=== PATIENT | female | born 1985 | race American Indian/Alaskan Native ===

== ENCOUNTER 2016-12-12 21:22 | Emergency (ER) | payer SELFPAY ==
[2016-12-12 22:00] VITALS: BP 126/81
[2016-12-12] MEDS ORDERED: XYLOCAINE 1% 20 mL INFILTRATI ONE (22:54)
[2016-12-12] MEDS ORDERED: BOOSTRIX IM ONE (22:54)
--- NOTE | 2016-12-12 23:29 | Emergency Department Report ---
ED Laceration HPI - HPI Chief Complaint: Wound/Laceration Stated Complaint: LACERATION LEFT INDEX FINGER Time Seen by Provider: 12/12/16 22:47 Occurred When: Today Location: Upper Extremity Severity: moderate Tetanus Status: Not up to Date Laceration Symptoms: Yes Pain, No Foreign Body Sensation, No Numbness, No Weakness Other History: Patient comes in the ER today with complaints of finger laceration to her left second finger. Patient states that she cut her finger while opening a can of corn. Patient unsure of her last tetanus but thinks it was 5 years ago. ED Review of Systems ROS: Stated complaint: LACERATION LEFT INDEX FINGER Other details as noted in HPI Constitutional: denies: chills, fever Eyes: denies: eye pain, eye discharge, vision change ENT: denies: ear pain, throat pain Respiratory: denies: cough, shortness of breath, wheezing Cardiovascular: denies: chest pain, palpitations Endocrine: no symptoms reported Gastrointestinal: denies: abdominal pain, nausea, diarrhea Genitourinary: denies: urgency, dysuria, discharge Musculoskeletal: denies: back pain, joint swelling, arthralgia Skin: other (finger laceration). denies: rash, lesions Neurological: denies: headache, weakness, numbness, paresthesias Psychiatric: denies: anxiety, depression Hematological/Lymphatic: denies: easy bleeding, easy bruising ED Past Medical Hx - Past Medical History Previous Medical History?: No - Surgical History Past Surgical History?: No - Social History Smoking Status: Current Every Day Smoker Substance Use Type: None, Marijuana - Medications Home Medications: Home Medications Medication Instructions Recorded Confirmed Last Taken Type Cephalexin [Keflex] 500 mg PO TID #21 cap 12/12/16 Unknown Rx traMADol [Ultram] 50 mg PO Q4HR PRN #20 tablet 12/12/16 Unknown Rx Laceration Physical Exam - Exam General: Vital signs noted. No distress. Alert and acting appropriately. Wound Length (cm): 1 Laceration Location: Upper Extremity (subcutaneous linear laceration noted to left anterior second finger just distal to DIP joint. No active bleeding on initial evaluation.) Laceration Exam: Yes Normal Distal CMS, No Foreign Body, No Exposed Tendon, Vessel, or Nerve, No Tendon Injury ED Course Vital Signs 12/12/16 21:56 Temperature 98.2 F Pulse Rate 74 Respiratory 18 Rate Blood Pressure 126/81 O2 Sat by Pulse 100 Oximetry - Laceration /Wound Repair Left Anterior Distal Finger Wound Location: upper extremity (left second finger anteriorly just distal to DIP joint) Wound Length (cm): 1 Wound's Depth, Shape: linear Wound Explored: clean Irrigated w/ Saline (ccs): 20 Betadine Prep?: Yes Anesthesia: 1% Lidocaine Volume Anesthetic (ccs): 1 Wound Repaired With: sutures Suture Size/Type: 4:0, proline Number of Sutures: 3 Layer Closure?: No Sterile Dressing Applied?: Yes ED Medical Decision Making - Medical Decision Making Patient is nontoxic and hemodynamically stable. Laceration repaired here in the ER with sutures. Patient tolerated procedure very well without any complications or difficulty. Wound dressed with nonadherent bandage and Lucy. Patient was also given tetanus vaccine here in the ER. Due to location of injury, I will start patient on some prophylactic antibiotics as well as prescribed her some mild pain medications. Patient is stable for discharge and is agreement with treatment plan. Critical care attestation.: If time is entered above; I have spent that time in minutes in the direct care of this critically ill patient, excluding procedure time. ED Disposition Clinical Impression: Finger laceration Disposition: DISCHARGED TO HOME OR SELFCARE Is pt being admited?: No Does the pt Need Aspirin: No Condition: Good Instructions: Finger Laceration (ED) Prescriptions: Cephalexin [Keflex] 500 mg PO TID #21 cap traMADol [Ultram] 50 mg PO Q4HR PRN #20 tablet PRN Reason: Pain Referrals: PRIMARY CARE, [Primary Care Provider] - 3-5 Days [facility], ER [Other] - 12/22/16 Time of Disposition: 23:37 ED General adult EXAM - General General appearance: alert, in no apparent distress Limitations: No Limitations - Head Head exam: Positive: atraumatic, normocephalic - Eye Eye exam: normal appearance - Neck Neck exam: Positive: normal inspection, full ROM - Respiratory Respiratory exam: Negative: respiratory distress, wheezes - Cardiovascular Cardiovascular Exam: Positive: regular rate, normal rhythm - GI/Abdominal GI/Abdominal exam: Negative: distended - Extremities Extremities exam: Positive: tenderness (tenderness noted to left second finger at area of laceration), normal capillary refill - Back Back exam: normal inspection - Neurological Neurological exam: Positive: alert, oriented X3, normal gait, reflexes normal. Negative: motor sensory deficit - Psychiatric Psychiatric exam: Positive: normal affect, normal mood
== END 2016-12-12 23:35 | disposition home or self-care (01) ==
LOC: ED 21:22
DX: S61.211A Laceration without foreign body of left index finger without damage to nail, initial encounter (principal); F17.200 Nicotine dependence, unspecified, uncomplicated; F12.10 Cannabis abuse, uncomplicated; W45.8XXA Other foreign body or object entering through skin, initial encounter; Y93.89 Activity, other specified; Y99.8 Other external cause status; Y92.89 Other specified places as the place of occurrence of the external cause
CPT/HCPCS: 90471; 90715

== ENCOUNTER 2016-12-24 14:17 | Emergency (ER) | payer SELFPAY ==
[2016-12-24 14:47] VITALS: BP 97/60
--- NOTE | 2016-12-24 18:16 | Emergency Department Report ---
Suture/Staple Removal - [facility] Chief Complaint: Laceration/Recheck/Suture Stated Complaint: STITCHES REMOVAL Time Seen by Provider: 12/24/16 18:13 ED Review of Systems ROS: Stated complaint: STITCHES REMOVAL Other details as noted in HPI Constitutional: denies: chills, fever Eyes: denies: eye pain, eye discharge, vision change ENT: denies: ear pain, throat pain Respiratory: denies: cough, shortness of breath, wheezing Cardiovascular: denies: chest pain, palpitations Endocrine: no symptoms reported Gastrointestinal: denies: abdominal pain, nausea, diarrhea Genitourinary: denies: urgency, dysuria, discharge Musculoskeletal: denies: back pain, joint swelling, arthralgia Skin: other (patient denies pain, erythema, fever, chills, discharge.). denies : rash, lesions, change in color, change in hair/nails, pruritus Neurological: denies: headache, weakness, paresthesias Psychiatric: denies: anxiety, depression Hematological/Lymphatic: denies: easy bleeding, easy bruising ED Past Medical Hx - Past Medical History Previous Medical History?: No - Surgical History Past Surgical History?: No Additional Surgical History: rhinoplasty. polyps removed from vocal chords - Social History Smoking Status: Never Smoker Substance Use Type: None, Marijuana - Medications Home Medications: Home Medications Medication Instructions Recorded Confirmed Last Taken Type Cephalexin [Keflex] 500 mg PO TID #21 cap 12/12/16 Unknown Rx traMADol [Ultram] 50 mg PO Q4HR PRN #20 tablet 12/12/16 Unknown Rx Suture Removal Exam - Exam General: Vital signs noted. No distress. Alert and acting appropriately. Wound: No Pathologic Erythema, No Tenderness, No Drainage, No Pus, No Wound Dehiscence Other Systems: All other systems reviewed and are unremarkable. ED Course Vital Signs 12/24/16 14:44 Temperature 98.9 F Pulse Rate 81 Respiratory 16 Rate Blood Pressure 97/60 O2 Sat by Pulse 99 Oximetry - Reevaluation(s) Reevaluation #1: 12/24/16 18:24 3 pleural proline sutures removed. No dehiscence no discharge no lymphadenopathy or lymphangitis. Patient tolerated procedure well Critical care attestation.: If time is entered above; I have spent that time in minutes in the direct care of this critically ill patient, excluding procedure time. ED Disposition Clinical Impression: Visit for suture removal Disposition: DISCHARGED TO HOME OR SELFCARE Is pt being admited?: No Condition: Stable Instructions: Suture Removal (ED) Referrals: PRIMARY CARE,MD [Primary Care Provider] - 3-5 Days
== END 2016-12-24 18:52 | disposition home or self-care (01) ==
LOC: ED 14:17
DX: S61.211D Laceration without foreign body of left index finger without damage to nail, subsequent encounter (principal); X58.XXXD Exposure to other specified factors, subsequent encounter; Y92.89 Other specified places as the place of occurrence of the external cause; Y99.8 Other external cause status